=== PATIENT | male | born 1995 | race American Indian/Alaskan Native ===

== ENCOUNTER → 2024-07-27 | Outpatient (CLI) | payer MEDICAID, SELFPAY ==
--- NOTE | 2024-07-27 13:08 | XR_ITS ---
Examination: Knee bilateral, 8 views Technique: Knee AP, lateral, oblique, axial image knee total 8 views, standing Date and time of exam: July 27, 2024 1411 hours INDICATIONS: Patient fell 6 years ago with injury to both knees, bilateral knee pain. FINDINGS: No fracture or dislocation involving either knee Mild osteoarthritis patellofemoral joints bilaterally Mild osteoarthritis lateral joint space right knee IMPRESSION: No fracture or dislocation involving either knee Osteoarthritis as above
== END | disposition home or self-care (01) ==
PROVIDERS: PCP Physician Assistant; Referring Provider Physician Assistant; Visit Provider Physician Assistant
DX: M17.0 Bilateral primary osteoarthritis of knee (principal); S89.91XS Unspecified injury of right lower leg, sequela; S89.92XS Unspecified injury of left lower leg, sequela; W19.XXXS Unspecified fall, sequela
CPT/HCPCS: 73564